=== PATIENT | male | born 1965 | race Caucasian/White ===

== ENCOUNTER 2022-07-22 08:15 | Emergency (ER) | payer OTHER, SELFPAY ==
--- NOTE | 2022-07-22 08:18 | ED.URI ---
HPI - URI/Sore Throat General Stated Complaint: covid positive Time Seen by Provider: 07/22/22 08:18 Source: patient Mode of arrival: ambulatory Limitations: no limitations History of Present Illness HPI Narrative: Mr. Ware is a 56-year-old male patient presenting to clinic today with complaints of being COVID positive. He reports he has nasal congestion, sinus headache, and loss of taste and smell. He denies any fever, chills, shortness of breath, or chest pain. Reports he tested positive for COVID last night. He is unaware of when his symptoms started MD elicited complaint: sore throat and nasal congestion Related Data Allergies Allergy/AdvReac Type Severity Reaction Status Date / Time No Known Allergies Allergy Verified 07/22/22 08:38 Review of Systems Review of Systems: Pertinent positives per HPI. Patient denies any fever, chills, rash, headache, visual changes, dizziness, shortness of breath, chest pain, palpitations, nausea, vomiting, diarrhea, constipation, abdominal pain, or any urinary issues. PMF Past Medical History Medical History Benign hypertension Neck pain Seasonal allergies Tachycardia Surgical History Surgical History [place] teeth extracted Family History Family History Mother Diabetes mellitus Hypertension Lymphedema Father Hypertension Cerebrovascular accident Social History Social History Smoking status: Never smoker Second hand tobacco smoke exposure: No Alcohol intake: current Drinks per week: 2 Substance use: never Substance use type: does not use Additional occupation/education comments: customer service; works from home Comments At the time of my signature, I reviewed and agree with the nursing past medical, surgical, social, and family history. There is no relevant family history pertinent to the patient complaint. Exam Narrative: General: Well-developed, obese, in no apparent distress Head: Normocephalic, atraumatic Eyes: Pupils equally round and reactive to light bilaterally, EOM intact, sclera and conjunctive clear, no discharge, lids normal Ears: TMs intact and clear, ear canals clear, no drainage, grossly hearing normal. Nose: Nares patent, clear nasal discharge, no inflammation, no sinus tenderness. Mouth: Oral pharynx without lesions or masses, good dentition, MMM. Postnasal drip Neck: Supple, trachea midline, no enlargement of anterior or posterior cervical nodes, no thyroid masses or goiter palpable. Cardio: Regular rate and rhythm, s1 and s2 normal, no murmur appreciated. Resp: Clear to auscultation bilaterally, no rhonchi, rales, wheezing or rubs Course Course Emergency Course: Portions of this record may have been created with voice recognition software. Level of Care: Express Care Visit Vital Signs Vital signs: Vital signs reviewed MDM - URI/Sore Throat MDM Narrative Medical decision making narrative: At the time of visit patient is resting comfortably on the exam table. He tested positive for COVID at home. His symptoms are mild and are improving so I do not feel that he is a candidate for antivirals at this time. Supportive measures were discussed with the patient and he voiced understanding of discharge instructions and agrees to treatment plan. Differential Diagnosis Differential diagnosis: Likely upper respiratory infection, otitis media, sinusitis, viral infection, bronchitis, influenza, pharyngitis and other (COVID) Discharge Plan Discharge Clinical Impression: COVID-19 Patient Disposition: Home, Self-Care Condition: Stable Instructions: Antibiotic Form, COVID-19 (Coronavirus Disease 2019) (ED), How to Recover from COVID-19 at Home (ED) Additional Instructi
[2022-07-22 08:26] VITALS: BP 161/108; PULSE 91; RESP 18; TEMP 36.6; O2SAT 97
== END 2022-07-22 08:52 | disposition home or self-care (01) ==
PROVIDERS: Emergency Provider Nurse Practitioner Family; PCP Physician Assistant
DX: U07.1 COVID-19 (principal); I10 Essential (primary) hypertension
CPT/HCPCS: 99211; G0463

== ENCOUNTER 2024-03-13 10:37 | Emergency (ER) | payer OTHER, SELFPAY ==
[2024-03-13] VITALS (14 sets, daily range): BP systolic 120–141; BP diastolic 70–93; PULSE 58–76; RESP 8–17; TEMP 36.6–36.8; O2SAT 94–98
--- NOTE | ~2024-03-13 | CT_ITS ---
CT brain wo con Ordering provider: Anival Almonte MD History: 58 years Male with . head injury . Comparison: None. Technique: CT of the head without contrast. The dose-length product was 681 mGy-cm. FINDINGS: BRAIN PARENCHYMA AND CSF SPACES: Mild leukoaraiosis and diffuse cortical atrophy. Mild atheromatous d isease. No midline shift, mass effect or hemorrhage. The brain parenchyma and CSF spaces are otherwi se normal. VISUALIZED PARANASAL SINUSES: Well aerated. MASTOIDS: Well aerated. BONES: The bones appear intact. SOFT TISSUES: Visualized nasopharynx is normal. Superficial soft tissues are normal. IMPRESSION: No acute intracranial findings. Reviewed, dictated and finalized at location A.
[2024-03-13 10:45] LABS: Glucose Point of Care 160 mg/dl (65-105)
--- NOTE | 2024-03-13 10:56 | ECG_ITS ---
Test Date: 2024-03-13 10:43:36 Measurements Intervals [place] Rate: 73 P: 29 TX: 141 QRS: 19 QRSD: 89 T: 52 QT: 385 QTc: 425 Interpretive Statements SINUS RHYTHM DELAYED PRECORDIAL R/S TRANSITION BORDERLINE ECG No previous ECG available for comparison Electronically Signed On 03-13-2024 11:11:59 CDT by Gordon Clancy D.O.
--- NOTE | 2024-03-13 11:03 | ED.GENADULT ---
HPI - General Adult General Chief complaint: Syncope Stated complaint: syncopal Time Seen by Provider: 03/13/24 10:59 History of Present Illness HPI narrative: Patient is a 58-year-old male who presents ER after having a syncopal episode at his doctor's office. Brief CPR was performed the patient has no chest discomfort. Patient reports he had been feeling ill over the last week with a cold. He had not been eating or drinking well. He was fasting today for his blood work. He had his blood drawn. He stood up to make an appointment and lost consciousness falling backwards and striking his head. He has a 7 cm laceration to his scalp. Unknown last tetanus. He has no other complaints. Related Data Allergies Allergy/AdvReac Type Severity Reaction Status Date / Time No Known Allergies Allergy Verified 03/13/24 09:24 Review of Systems Review of Systems: All systems reviewed & are unremarkable except as noted in HPI and below Constitutional: Constitutional: Reports no additional constitutional complaints ENT: Reports system reviewed and no additional complaints, except as documented Cardiovascular: Cardiovascular: Reports no additional cardiovascular complaints Respiratory: Respiratory: Reports no additional respiratory complaints Neurologic: Reports headache(s), Denies focal weakness and Denies numbness PMFSH Past Medical History Medical History Benign hypertension History of COVID-19 Neck pain Seasonal allergies Tachycardia Surgical History Surgical History [place] teeth extracted Family History Family History Mother Diabetes mellitus Hypertension Lymphedema Father Hypertension Cerebrovascular accident Social History Social History Smoking status: Never smoker Second hand tobacco smoke exposure: No Alcohol intake: current Drinks per week: 2 Substance use: never Substance use type: does not use Lack of Transportation: No Lack of Food: Never True Current Housing: I Have Housing Concerned About Future Housing: No Difficulty Paying Gas/Electric Bills: No Difficulty Paying for Meds: No Currently Unemployed: No Education: Bachelor's Degree Difficulty w/ Childcare or Family Care: No Living arrangements: with family Occupation/Education: occupation Additional occupation/education comments: customer service; works from home Exam Narrative: GENERAL: Well-appearing, well-nourished, and in no acute distress. HEAD: Normocephalic, 7 cm posterior scalp laceration. EYES: PERRL and EOMI. ENT: Mucous membranes moist. CHEST: Clear to auscultation. No respiratory distress. HEART: Regular rate and rhythm. Normal peripheral pulses. ABDOMEN: Soft, nontender, nondistended. EXTREMITIES: Normal range of motion. No edema. NEURO: Alert and oriented x3. PSYCH: Normal mood and affect. Course Course Emergency Course: patient resting comfortably. Feels better after IV hydration. Laceration repaired. Return precautions given. Discharge. Vital Signs Vital signs: Vital Signs Temperature 98.3 F 03/13/24 10:39 Pulse Rate 74 03/13/24 10:39 Respiratory Rate 12 03/13/24 10:39 Blood Pressure 138/80 03/13/24 10:39 Pulse Oximetry 94 03/13/24 10:39 Oxygen Delivery Room Air 03/13/24 10:39 Temperature 97.8 F 03/13/24 13:01 Pulse Rate 58 L 03/13/24 13:01 Respiratory Rate 14 03/13/24 13:01 Blood Pressure 136/74 03/13/24 13:01 Pulse Oximetry 96 03/13/24 13:01 Oxygen Delivery Room Air 03/13/24 10:39 Procedures Laceration Laceration 1: Date: 03/13/24 Time: 14:00 Site: scalp Size (cm): 7 Description: linear Depth: simple, single layer
[2024-03-13 11:08] LABS: Basophils Percent Auto 0.5 % (0.2-1.2); Eosinophils Absolute Auto 0.2 K/mm3 (0-0.3); Hematocrit 51.3 % (42.0-52.0); Hemoglobin 17.1 g/dL (14.0-18.0); Immature Granulocyte Absolute 0.05 K/mm3 (0.00-0.031); Immature Granulocyte Percent A 0.6 % (0-0.5); Lymphocytes Absolute Auto 2.11 K/mm3 (0.9-3.2); Lymphocytes Percent Auto 26.7 % (18.3-44.2); Mean Corpuscular HGB Conc 33.3 g/dl (32-36); Mean Corpuscular Hemoglobin 28.5 pg (26-34); Mean Corpuscular Volume 85.5 fl (80-100); Mean Platelet Volume 11.8 fl (7.4-10.4); Monocytes Absolute Auto 0.7 K/mm3 (0.1-0.6); Monocytes Percent Auto 8.7 % (2.6-8.5); Neutrophils Absolute Auto 4.8 K/mm3 (1.3-6.7); Neutrophils Percent Auto 60.5 % (45.5-73.1); Platelet Count Result 240 k/mm3 (150-375); Red Cell Distribution Width 12.9 % (11.5-14.5); White Blood Count 7.9 K/mm3 (4.5-10.0)
[2024-03-13 11:19] LABS: Alanine Aminotransferase 32 U/L (6-50); Albumin Level 4.6 g/dL (3.5-5.1); Alkaline Phosphatase 85 U/L (38-126); Anion Gap 11 mmol/L (4-12); Aspartate Amino Transferase 29 U/L (17-59); Bilirubin,Total 0.8 mg/dL (0.2-1.3); Blood Urea Nitrogen 17 mg/dL (9-20); Calcium 9.1 mg/dL (8.4-10.2); Carbon Dioxide 25 mmol/L (22-30); Chloride 107 mmol/L (98-107); Estimated CRCL calculation 94 ml/min; Estimated Glomerular Filt Rate > 60; Glucose 151 mg/dL (65-110); Sodium 143 mmol/L (137-145)
[2024-03-13] MEDS: TETANUS,DIPHTHERIA,AC PERTUSSIS ADULT (0.5 ML) BOOSTRIX IM (12:01)
[2024-03-13] MEDS: SODIUM CHLORIDE 0.9% IV 1,000 ML 999 ML IV CONT (12:02)
== END 2024-03-13 14:24 | disposition home or self-care (01) ==
PROVIDERS: Emergency Provider Emergency Medicine; PCP Family Medicine
DX: R55 Syncope and collapse (principal); S01.01XA Laceration without foreign body of scalp, initial encounter; W18.30XA Fall on same level, unspecified, initial encounter; Z23 Encounter for immunization
CPT/HCPCS: 12002; 36415; 70450; 80053; 82948; 85025; 90471; 90715; 93005; 96360; 96361; 99284; J7030